=== PATIENT | female | born 1980 | race American Indian/Alaskan Native ===

== ENCOUNTER 2017-05-07 17:42 | Emergency (ER) | payer SELFPAY ==
[2017-05-07 17:54] VITALS: BP 140/94
== END 2017-05-07 18:15 | disposition left against medical advice (07) ==
LOC: ED 17:42
DX: H57.8 Other specified disorders of eye and adnexa (principal); Z53.21 Procedure and treatment not carried out due to patient leaving prior to being seen by health care provider